=== PATIENT | female | born 1965 | race Two or more races ===

== ENCOUNTER → 2018-04-25 16:14 | Outpatient (CLI) | payer OTHER, SELFPAY ==
[2018-05-01 11:28] LABS: HPV APTIMA, High Risk Negative (Negative)
== END ==
PROVIDERS: Visit Provider Obstetrics & Gynecology
DX: Z12.4 Encounter for screening for malignant neoplasm of cervix (principal)
CPT/HCPCS: 88175; G0145

== ENCOUNTER → 2019-05-28 17:17 | Outpatient (CLI) | payer OTHER, SELFPAY ==
[2019-06-01 14:07] LABS: HPV APTIMA, High Risk Negative (Negative)
== END ==
PROVIDERS: Visit Provider Obstetrics & Gynecology
DX: Z12.4 Encounter for screening for malignant neoplasm of cervix (principal)
CPT/HCPCS: 87624; 88175; G0145

== ENCOUNTER → 2022-12-21 | Outpatient (CLI) | payer OTHER, SELFPAY ==
--- NOTE | 2022-12-21 | LES_PTH ---
PATIENT: JODY KUMAR LOC: [facility] U#:[id number] AGE/SX: 57/F ROOM: RE12/21/[address]: Dr. Deysi Oliver, : 1965 BED: DIS: 12/21/2022 SPEC #: [id number] RECD: 12/21/22 10:02 STATUS: CECILIA JONH #: [id number] SHAY: 12/21/22 00:[address]: Deysi Oliver DEPT: SURGICAL PATHOLOGY RECD BY: Bill Corbett Tissues: Skin of inguinal region Procedures: Surgery Specimen Level IV HEADER OPERATION: Skin tag removal groin PRE-OP DIAGNOSIS: Skin tag groin L91.8 TISSUE SUBMITTED: Skin tag groin MICROSCOPIC DIAGNOSIS Skin tag groin, biopsy: Polypoid fragments (2 larger fragments) with acanthosis, pseudoepitheliomatous hyperplasia, hyperkeratosis and dermal chronic inflammatios, consistent with benign keratosis. Additional fragments of fibroepithelial polyp (skin tags). SJ:gaudencio 12/22/2022 COMMENT Case has been reviewed in consultation with Dr. Loya who concurs with the above diagnosis. IDC:AM MICROSCOPIC DESCRIPTION Slides are reviewed. GROSS DESCRIPTION Received in fixative is one container labeled with the patient's name and designated skin tag. The specimen consists of multiple (six) polypoid fragments of marte-white skin measuring 0.3 to 0.7 cm in greatest dimension. The largest piece measures 0.7 x 0.5 x 0.3 cm. The entire specimen is submitted in one cassette. / PERLITA:gaudencio 12/21/2022 TC:5 CPT: 89623
== END | disposition home or self-care (01) ==
LOC: LABSPEC 09:40
PROVIDERS: Visit Provider Student in an Organized Health Care Education/Training Program
DX: L91.8 Other hypertrophic disorders of the skin (principal)
CPT/HCPCS: 88305